=== PATIENT | female | born 1955 | race Caucasian/White ===

== ENCOUNTER 2019-02-06 08:22 | Day surgery (SDC) | payer MEDICARE, BC, OTHER ==
[~2019-02-06] VITALS: Ht 162.6 cm; Wt 101.2 kg
[~2019-02-06 08:22] MED LIST: BRIM2OPD OU; LIDOCAINE 2% INJ 100 MG/5 ML SDV (FOR ANES.) As Ordered ONE; LISI10TA4 PO; MULTCAP PO; NS 1,000 ML IV ONE; OMEP40CA2 PO; PROPOFOL 200 MG/20 ML VIAL As Ordered ONE; TRAV04OPD OU
--- NOTE | 2019-02-06 10:02 | ROOR ---
Patient Name: Catrina Hammonds Procedure Date: 02/06/2019 9:46 AM Date of : 1955 Age: 64 Room: [facility] Gender: Female Note Status: Finalized Procedure: Upper GI endoscopy Indications: Heartburn, Suspected esophageal reflux Providers: Jae Dickens Jr, MD Referring MD: BI MOORE NP Requesting Provider: Medicines: Propofol per Anesthesia Complications: No immediate complications. Procedure: Pre-Anesthesia Assessment: - Prior to the procedure, a History and Physical was performed, and patient medications and allergies were reviewed. The patient is competent. The risks and benefits of the procedure and the sedation options and risks were discussed with the patient. All questions were answered and informed consent was obtained. Patient identification and proposed procedure were verified by the physician and the nurse in the pre-procedure area and in the procedure room. Mental Status Examination: alert and oriented. Airway Examination: normal oropharyngeal airway and neck mobility. Respiratory Examination: clear to auscultation. CV Examination: normal. ASA Grade Assessment: II - A patient with mild systemic disease. After reviewing the risks and benefits, the patient was deemed in satisfactory condition to undergo the procedure. The anesthesia plan was to use moderate sedation / analgesia (conscious sedation). Immediately prior to administration of medications, the patient was re-assessed for adequacy to receive sedatives. The heart rate, respiratory rate, oxygen saturations, blood pressure, adequacy of pulmonary ventilation, and response to care were monitored throughout the procedure. The physical status of the patient was re-assessed after the procedure. The Endoscope was introduced through the mouth, and advanced to the second part of duodenum. The upper GI endoscopy was accomplished without difficulty. The patient tolerated the procedure well. Findings: The upper third of the esophagus, middle third of the esophagus and lower third of the esophagus were normal. The gastroesophageal junction, cardia, gastric fundus, gastric body, gastric antrum, prepyloric region of the stomach and pylorus were normal. Biopsies were taken with a cold forceps for histology. The duodenal bulb and second portion of the duodenum were normal. Patchy moderate inflammation characterized by congestion (edema), erythema, friability and granularity was found in the first portion of the duodenum. Impression: - Normal upper third of esophagus, middle third of esophagus and lower third of esophagus. - Normal gastroesophageal junction, cardia, gastric fundus, gastric body, antrum, prepyloric region of the stomach and pylorus. Biopsied. - Normal duodenal bulb and second portion of the duodenum. - Duodenitis. Recommendation: - Discharge patient to home (ambulatory). - Return to my office as previously scheduled. Jae Dickens MD Jae Dickens Jr, MD 02/06/2019 10:01:56 AM Electronically signed by Jae Dickens Jr, MD Number of Addenda: 0 Note Initiated On: 02/06/2019 9:46 AM Estimated Blood Loss: Estimated blood loss: none.
[2019-02-06] MEDS ORDERED: PROPOFOL 200 MG/20 ML VIAL As Ordered ONE (10:16)
--- NOTE | 2019-02-06 10:23 | ROOR ---
Patient Name: Catrina Hammonds Procedure Date: 02/06/2019 9:47 AM Date of : 1955 Age: 64 Room: [facility] Gender: Female Note Status: Finalized Procedure: Colonoscopy Indications: Screening in patient at increased risk: Family history of 1st-degree relative with colorectal cancer Providers: Jae Dickens Jr, MD Referring MD: BI MOORE NP Requesting Provider: Medicines: Propofol per Anesthesia Complications: No immediate complications. Procedure: Pre-Anesthesia Assessment: - Prior to the procedure, a History and Physical was performed, and patient medications and allergies were reviewed. The patient is competent. The risks and benefits of the procedure and the sedation options and risks were discussed with the patient. All questions were answered and informed consent was obtained. Patient identification and proposed procedure were verified by the physician and the nurse in the pre-procedure area and in the procedure room. Mental Status Examination: alert and oriented. Airway Examination: normal oropharyngeal airway and neck mobility. Respiratory Examination: clear to auscultation. CV Examination: normal. ASA Grade Assessment: II - A patient with mild systemic disease. After reviewing the risks and benefits, the patient was deemed in satisfactory condition to undergo the procedure. The anesthesia plan was to use moderate sedation / analgesia (conscious sedation). Immediately prior to administration of medications, the patient was re-assessed for adequacy to receive sedatives. The heart rate, respiratory rate, oxygen saturations, blood pressure, adequacy of pulmonary ventilation, and response to care were monitored throughout the procedure. The physical status of the patient was re-assessed after the procedure. The Colonoscope was introduced through the anus and advanced to the cecum, identified by appendiceal orifice and ileocecal valve. The colonoscopy was performed without difficulty. The patient tolerated the procedure well. The quality of the bowel preparation was adequate. Findings: The rectum, recto-sigmoid colon, descending colon, transverse colon, ascending colon, cecum, appendiceal orifice and ileocecal valve appeared normal. Multiple small and large-mouthed diverticula were found in the sigmoid colon. Impression: - The rectum, recto-sigmoid colon, descending colon, transverse colon, ascending colon, cecum, appendiceal orifice and ileocecal valve are normal. - Diverticulosis in the sigmoid colon. - No specimens collected. Recommendation: - Discharge patient to home (ambulatory). - Repeat colonoscopy in 5 years for screening purposes. Jae Dickens MD Jae Dickens Jr, MD 02/06/2019 10:23:29 AM Electronically signed by Jae Dickens Jr, MD Number of Addenda: 0 Note Initiated On: 02/06/2019 9:47 AM Estimated Blood Loss: Estimated blood loss: none.
[2019-02-06 10:50] VITALS: BP 139/72
== END 2019-02-06 10:57 | disposition home or self-care (01) ==
LOC: M OPP 08:22
PROVIDERS: ATTEND Surgery
DX: K57.30 Diverticulosis of large intestine without perforation or abscess without bleeding (principal); K29.80 Duodenitis without bleeding; R12 Heartburn; Z12.11 Encounter for screening for malignant neoplasm of colon; Z80.0 Family history of malignant neoplasm of digestive organs
CPT/HCPCS: 43239; 88305; G0105

== ENCOUNTER → 2021-01-26 | Outpatient (CLI) | payer MEDICARE, BC ==
[~2021-01-26] MED LIST changes: -LIDOCAINE 2% INJ 100 MG/5 ML SDV (FOR ANES.) As Ordered ONE; +LISI10TA22 PO; -LISI10TA4 PO; -NS 1,000 ML IV ONE; -OMEP40CA2 PO; +OMEP40CA97 PO; -PROPOFOL 200 MG/20 ML VIAL As Ordered ONE
--- NOTE | 2021-01-26 12:43 | REPMRS ---
Patient History The patient states she had a clinical breast exam in December 2020. Family history of colorectal cancer at age 45 in brother, prostate cancer at age 60 in father. Took hormonal contraceptives for 6 months. Tomosynthesis is performed. Volpara breast density is b. [facility] lifetime risk of breast cancer 6.0%. Digital Woman Screen Mammo: January 26, 2021 - Exam #: [id number] Bilateral CC and MLO view(s) were taken. Technologist: Heather Wayne, Technologist Prior study comparison: June 25, 2017, bilateral digital mammo screening bilat, performed at [facility]. June 29, 2016, bilateral digital mammo screening bilat, performed at [facility]. May 07, 2015, bilateral digital mammo screening bilat, performed at [facility]. March 15, 2012, bilateral bilat screen digital mammo, performed at [facility] ([facility]). February 09, 2011, bilateral screening mammogram, performed at [facility] ([facility]). FINDINGS: The breast tissue is heterogeneously dense. This may lower the sensitivity of mammography. There has been no change in the appearance of the mammogram from the prior studies. There is a moderate amount of residual fibroglandular tissue which is fairly symmetric. There is no interval development of dominant mass, areas of architectural distortion, or clustered microcalcification typical of malignancy. Assessment: BI-RADS/ACR category 1 mammogram. Negative Mammogram. Recommendation Routine screening mammogram in 1 year (for women over age 40). This mammogram was interpreted with the aid of an FDA-approved computer-aided dectection system. Electronically Signed By: Duong Hollingsworth MD 01/26/21 [id number]
== END ==
LOC: M WHC 10:43
PROVIDERS: ATTEND Nurse Practitioner Women's Health
DX: Z12.31 Encounter for screening mammogram for malignant neoplasm of breast (principal)

== ENCOUNTER → 2021-05-16 | Outpatient (CLI) | payer MEDICARE, BC, OTHER ==
[~2021-05-16] MED LIST changes: +GASTROGRAFIN SOLUTION 30ML (Q9963) As Ordered ONE; +ISOVUE-370 76% 100ML VIAL As Ordered ONE; +OMEP40CA4 PO; -OMEP40CA97 PO
--- NOTE | 2021-05-17 08:25 | REP ---
INDICATION: LOWER ABD PAIN, CHANGE IN BOWEL HABIT COMPARISON: None TECHNIQUE: Axial noncontrast images from the lung bases to the pubic symphysis with coronal and sagittal reformations. This CT examination was performed using the following dose reduction techniques: Automated exposure control, adjustment of mA and/or kv according to the patient's size, and use of iterative reconstruction technique. FINDINGS: Lung bases are clear with minimal chronic changes at the right middle lobe and lingula. Visualized heart and pericardium normal. Liver, spleen, atrophic pancreas, bilateral adrenal glands and kidneys are normal. Cholelithiasis noted without acute cholecystitis. The enteric system is unremarkable and without obstruction or acute inflammatory process. Normal terminal ileum and appendix identified in the right lower quadrant. Sigmoid diverticulosis without acute diverticulitis. Pelvis demonstrates normal collapsed bladder and prior hysterectomy. No ascites. No free air. No adenopathy. No focal inflammatory stranding. Abdominal aorta without aneurysm. Musculoskeletal structures are intact and without acute osseous abnormality. IMPRESSION: No acute abdominopelvic pathology appreciated. Cholelithiasis. Sigmoid diverticulosis. <Electronically signed by Joshua Galan > 05/17/21 [id number]
== END ==
LOC: M RAD 14:51
PROVIDERS: ATTEND Registered Nurse
DX: R10.30 Lower abdominal pain, unspecified (principal); R19.4 Change in bowel habit; K57.30 Diverticulosis of large intestine without perforation or abscess without bleeding
CPT/HCPCS: 74176; Q9963; Q9967

== ENCOUNTER → 2021-08-01 | Outpatient (CLI) | payer MEDICARE, BC, OTHER ==
[~2021-08-01] MED LIST changes: -GASTROGRAFIN SOLUTION 30ML (Q9963) As Ordered ONE; -ISOVUE-370 76% 100ML VIAL As Ordered ONE
== END ==
LOC: M WUC 09:33
PROVIDERS: ATTEND Physician Assistant Medical
DX: M25.561 Pain in right knee (principal)

== ENCOUNTER 2022-05-25 16:38 | Observation (INO) | payer MEDICARE, BC, OTHER ==
[~2022-05-25] VITALS: Ht 162.6 cm; Wt 100.6 kg
[2022-05-25] MEDS ORDERED: diphenhydrAMINE 50MG/ML VIAL (J1200) IV ONE (17:10)
[2022-05-25] MEDS ORDERED: FAMOTIDINE 20MG/2ML VIAL IVP ONE (17:10)
[2022-05-25] MEDS ORDERED: dexameTHASONE 20MG/5ML VIAL (J1100 PER 1MG) IV ONE (17:10)
[2022-05-25] MEDS ORDERED: SERT50TA29 PO (21:50)
[2022-05-25] MEDS ORDERED: TIZA2CAP PO (21:50)
[2022-05-25] MEDS ORDERED: VITMTA PO (21:50)
[2022-05-25] MEDS ORDERED: ATOR40TA75 PO (21:50)
[2022-05-25] MEDS ORDERED: METF-838 PO (21:50)
[2022-05-25] MEDS ORDERED: FAMO40TA3 PO (21:50)
[2022-05-25] MEDS ORDERED: EPIP0.3I2 IM (21:50)
[2022-05-25 21:59] LABS: BASO % 0.1 % (0.0-1.0); EOS # 0.1 10^3/uL (0.0-0.5); EOS % 0.7 % (0.0-3.0); HEMATOCRIT 33.5 % (36.0-47.0); HEMOGLOBIN 10.6 g/dl (12.0-15.5); LYMPH # 0.7 10^3/uL (1.5-5.0); LYMPH % 7.3 % (24.0-44.0); MEAN CORPUSCULAR HEMOGLOBIN 28.9 pg (27.0-33.0); MEAN CORPUSCULAR HGB CONC 31.6 g/dl (32.0-36.5); MEAN CORPUSCULAR VOLUME 91.3 fl (80.0-96.0); MONO # 0.1 10^3/uL (0.0-0.8); MONO % 1.2 % (2.0-8.0); NEUTROPHILS # 8.5 10^3/uL (1.5-8.5); NEUTROPHILS % 90.4 % (36.0-66.0); PLATELET COUNT, AUTOMATED 241 10^3/uL (150-450); RED BLOOD COUNT 3.67 10^6/uL (4.00-5.40); WHITE BLOOD COUNT 9.4 10^3/uL (4.0-10.0)
[2022-05-25] MEDS ORDERED: HOME MED LIST COMPLETE! XX SCH (22:00)
[2022-05-25 22:29] LABS: RSV AMPLIFICATION NEGATIVE (NEGATIVE)
[2022-05-25 22:30] LABS: ALBUMIN 3.4 GM/DL (3.2-5.2); ALT/SGPT 23 U/L (12-78); BILIRUBIN,DIRECT < 0.1 MG/DL (0.0-0.2); BILIRUBIN,TOTAL 0.2 MG/DL (0.2-1.0); BLOOD UREA NITROGEN 22 MG/DL (7-18); CARBON DIOXIDE LEVEL 28 MEQ/L (21-32); CHLORIDE LEVEL 108 MEQ/L (98-107); CREATININE FOR GFR 0.82 MG/DL (0.55-1.30); GLOMERULAR FILTRATION RATE > 60.0 (>45); GLUCOSE, FASTING 158 MG/DL (70-100); POTASSIUM SERUM 4.4 MEQ/L (3.5-5.1); SODIUM LEVEL 142 MEQ/L (136-145)
[2022-05-26] MEDS ORDERED: diphenhydrAMINE 50MG/ML VIAL (J1200) IV PRN (01:40)
[2022-05-26] MEDS ORDERED: ACETAMINOPHEN TAB 650MG DOSE (2X325MG) PO PRN (01:40)
[2022-05-26] MEDS ORDERED: MOM 30ML SUSPENSION UDC PO PRN (01:40)
[2022-05-26] MEDS ORDERED: MAALOX 30 ML SUSP *UDC PO PRN (01:40)
[2022-05-26] MEDS ORDERED: hydrALAZINE 20MG/ML 1ML VIAL (J0360 PER 20MG) IV STA (03:50)
[2022-05-26 04:00] VITALS: BP 125/59
[2022-05-26] MEDS ORDERED: GLUCOSE 4GM CHEW TABLET PO PRN (04:00)
[2022-05-26] MEDS ORDERED: hydrALAZINE 20MG/ML 1ML VIAL (J0360 PER 20MG) IV ONE (04:00)
[2022-05-26] MEDS ORDERED: DEXTROSE 50% 50 ML SYRINGE IV PRN (04:00)
[2022-05-26] MEDS ORDERED: EPINEPHrine INJ 1 MG/ML 1ML AMP IM PRN (04:00)
[2022-05-26] MEDS ORDERED: methylPREDNISolone 40MG 1ML VIAL IV SCH (04:00)
[2022-05-26] MEDS ORDERED: GLUCAGON INJ 1MG VIAL SC PRN (04:00)
[2022-05-26] MEDS ORDERED: NS 1,000 ML IV SCH (04:05)
[2022-05-26] MEDS ORDERED: INSULIN LISPRO (NovoLOG) PER UNIT SC SCH ×2 (07:30→21:00)
[2022-05-26 08:12] LABS: BLOOD UREA NITROGEN 23 MG/DL (7-18); CALCIUM LEVEL 8.9 MG/DL (8.8-10.2); CARBON DIOXIDE LEVEL 26 MEQ/L (21-32); CHLORIDE LEVEL 108 MEQ/L (98-107); CREATININE FOR GFR 0.67 MG/DL (0.55-1.30); GLOMERULAR FILTRATION RATE > 60.0 (>45); GLUCOSE, FASTING 137 MG/DL (70-100); POTASSIUM SERUM 4.1 MEQ/L (3.5-5.1); SODIUM LEVEL 140 MEQ/L (136-145)
[2022-05-26] MEDS ORDERED: FAMOTIDINE 20MG/2ML VIAL IVP SCH (09:00)
[2022-05-26] MEDS ORDERED: BRIMONIDINE 0.15% OPHTH SOLN 5 ML OU SCH (09:00)
[2022-05-26] MEDS ORDERED: NORV5TAB PO (10:23)
[2022-05-26 13:32] VITALS: BP 148/72
[2022-05-26] MEDS ORDERED: FLUBLOK(EGG FREE)(QUAD)INFLUENZA VACC 0.5ML SYRINGE 18YRS & OLDER IM.IMMUN ONE (14:00)
[2022-05-26] MEDS ORDERED: ATORVASTATIN 20 MG TAB PO SCH (21:00)
[2022-05-26] MEDS ORDERED: LATANOPROST 0.005% OPHTH SOLN 2.5 ML OU SCH (21:00)
[2022-05-26] MEDS ORDERED: SERTRALINE HCL 50 MG TAB PO SCH (21:00)
== END 2022-05-26 13:37 | disposition home or self-care (01) ==
LOC: M ED 16:38 → M ED INP 16:39
PROVIDERS: ADMIT Internal Medicine; ATTEND Internal Medicine
DX: T78.3XXA Angioneurotic edema, initial encounter (principal); R06.89 Other abnormalities of breathing; R22.0 Localized swelling, mass and lump, head; R49.8 Other voice and resonance disorders; I10 Essential (primary) hypertension; E11.9 Type 2 diabetes mellitus without complications; K21.9 Gastro-esophageal reflux disease without esophagitis; J30.2 Other seasonal allergic rhinitis; F32.A Depression, unspecified; Z86.73 Personal history of transient ischemic attack (TIA), and cerebral infarction without residual deficits; Z79.899 Other long term (current) drug therapy; Z79.84 Long term (current) use of oral hypoglycemic drugs; Z91.018 Allergy to other foods
CPT/HCPCS: 36415; 71045; 80048; 80076; 85025; 87631; 90682; 93005; 93041; 94760; 96361; 96374; 96375; 96376; 99285; G0378; J1100; J1200; J2920

== ENCOUNTER 2024-03-23 14:12 | Observation (INO) | payer MEDICARE, BC ==
[~2024-03-23] VITALS: Ht 162.6 cm; Wt 97.7 kg
[~2024-03-23 14:12] MED LIST changes: +ATOR40TA75 PO; +EPIP0.3I2 IM; +FAMO40TA3 PO; +METF-838 PO; +NORV5TAB PO; +SERT50TA29 PO; +TIZA2CAP PO; +VITMTA PO
[2024-03-23] MEDS ORDERED: ISOVUE-370 76% 100ML VIAL As Ordered ONE (15:25)
[2024-03-23 15:57] LABS: BASO % 0.3 % (0.0-1.0); EOS # 0.1 10^3/uL (0.0-0.5); EOS % 1.4 % (0.0-3.0); HEMATOCRIT 36.4 % (36.0-47.0); HEMOGLOBIN 11.5 g/dl (12.0-15.5); LYMPH # 1.3 10^3/uL (1.5-5.0); LYMPH % 14.7 % (24.0-44.0); MEAN CORPUSCULAR HEMOGLOBIN 27.2 pg (27.0-33.0); MEAN CORPUSCULAR HGB CONC 31.6 g/dl (32.0-36.5); MEAN CORPUSCULAR VOLUME 86.1 fl (80.0-96.0); MONO # 0.6 10^3/uL (0.0-0.8); MONO % 6.1 % (2.0-8.0); NEUTROPHILS # 6.9 10^3/uL (1.5-8.5); NEUTROPHILS % 77.1 % (36.0-66.0); PLATELET COUNT, AUTOMATED 264 10^3/uL (150-450); RED BLOOD COUNT 4.23 10^6/uL (4.00-5.40)
[2024-03-23 16:11] LABS: INR 0.97; PARTIAL THROMBOPLASTIN TIME 24.5 SECONDS (24.8-34.2); PROTHROMBIN TIME 12.6 SECONDS (12.5-14.5)
[2024-03-23 16:32] LABS: CPK CREATINE PHOSPHOKINASE 61 U/L (34-145)
[2024-03-23 16:33] LABS: ALBUMIN 3.5 G/DL (3.2-5.2); ALKALINE PHOSPHATASE 163 U/L (46-116); ALT/SGPT 21 U/L (7.0-40); AST/SGOT 15 U/L (<34); BILIRUBIN,DIRECT < 0.1 MG/DL (<0.4); BILIRUBIN,TOTAL 0.3 MG/DL (0.3-1.2); BLOOD UREA NITROGEN 22 MG/DL (9-23); CALCIUM LEVEL 8.5 MG/DL (8.3-10.6); CARBON DIOXIDE LEVEL 28 MMOL/L (20-31); CHLORIDE LEVEL 108 MMOL/L (98-107); CK-MB VALUE MASS < 1.0 NG/ML (<3.6); CREATININE FOR GFR 0.81 MG/DL (0.55-1.30); GLOMERULAR FILTRATION RATE > 60.0 (>39); GLUCOSE, FASTING 135 MG/DL (74-106); MAGNESIUM LEVEL 1.9 MG/DL (1.8-2.4); MB/CK RELATIVE INDEX 1.63 (< OR =4); PHOSPHORUS LEVEL 2.8 MG/DL (2.4-5.1); SODIUM LEVEL 140 MMOL/L (136-145)
[2024-03-23 16:34] LABS: FREE T4 0.95 NG/DL (0.89-1.76)
[2024-03-23 16:35] LABS: THYROID STIMULATING HORMONE 2.894 uIU/ML (0.55-4.78)
[2024-03-23 17:48] LABS: CK-MB VALUE MASS < 1.0 NG/ML (<3.6)
[2024-03-23 17:49] LABS: CPK CREATINE PHOSPHOKINASE 68 U/L (34-145); MB/CK RELATIVE INDEX 1.47 (< OR =4)
[2024-03-23] MEDS ORDERED: ACETAMINOPHEN TAB 650MG DOSE (2X325MG) PO PRN (18:30)
[2024-03-23 18:54] LABS: CHOLESTEROL LEVEL 151 MG/DL (<200); CHOLESTEROL RISK RATIO 3.25 (<5); HDL CHOLESTEROL 46.4 MG/DL (>40); LDL CHOLESTEROL 79.2 MG/DL (<100); NON-HDL-C 104.6 MG/DL; TRIGLYCERIDES LEVEL 127 MG/DL (<150)
[2024-03-23] MEDS ORDERED: GLUCAGON INJ 1MG VIAL SC PRN (18:55)
[2024-03-23] MEDS ORDERED: GLUCOSE 4 GM CHEW PO PRN (18:55)
[2024-03-23] MEDS ORDERED: DEXTROSE 50% 50ML SYRINGE IV PRN (18:55)
[2024-03-23 19:02] LABS: HEMOGLOBIN A1c 6.4 % (4.0-6.0)
[2024-03-23] MEDS ORDERED: AMLO1TAB25 PO (19:51)
[2024-03-23] MEDS ORDERED: HYDR-3363 PO (19:51)
[2024-03-23] MEDS ORDERED: MULTTAB61 PO (19:51)
[2024-03-23] MEDS ORDERED: HOME MED LIST COMPLETE! XX SCH (19:55)
[2024-03-23] MEDS: LORazepam 2 MG/ML 1ML VIAL IV ONE (20:05)
[2024-03-23] MEDS ORDERED: FAMOTIDINE 20 MG TAB PO PRN (20:30)
[2024-03-23 21:16] VITALS: BP 163/70
[2024-03-23] MEDS: OMEPRAZOLE 20MG CAP PO SCH (21:16)
[2024-03-23] MEDS: ASPIRIN 81MG ENTERIC TABLET PO SCH (21:16)
[2024-03-23] MEDS: **hydrALAZINE** 10 MG TAB PO ONE (21:16)
[2024-03-23] MEDS: SERTRALINE HCL 50 MG TAB PO SCH (21:16)
[2024-03-23] MEDS: ATORVASTATIN 20 MG TAB PO SCH (21:17)
[2024-03-23 23:25] LABS: INR 1.02; PROTHROMBIN TIME 13.1 SECONDS (12.5-14.5)
[2024-03-24 06:39] LABS: HEMATOCRIT 35.8 % (36.0-47.0); HEMOGLOBIN 11.1 g/dl (12.0-15.5); MEAN CORPUSCULAR HEMOGLOBIN 26.9 pg (27.0-33.0); MEAN CORPUSCULAR VOLUME 86.9 fl (80.0-96.0); PLATELET COUNT, AUTOMATED 241 10^3/uL (150-450); RED BLOOD COUNT 4.12 10^6/uL (4.00-5.40); WHITE BLOOD COUNT 7.7 10^3/uL (4.0-10.0)
[2024-03-24 07:05] LABS: ALBUMIN 3.3 G/DL (3.2-5.2); ALKALINE PHOSPHATASE 156 U/L (46-116); ALT/SGPT 18 U/L (7.0-40); AST/SGOT 14 U/L (<34); BILIRUBIN,TOTAL 0.3 MG/DL (0.3-1.2); BLOOD UREA NITROGEN 19 MG/DL (9-23); CALCIUM LEVEL 8.9 MG/DL (8.3-10.6); CARBON DIOXIDE LEVEL 28 MMOL/L (20-31); CHLORIDE LEVEL 109 MMOL/L (98-107); CREATININE FOR GFR 0.62 MG/DL (0.55-1.30); GLOMERULAR FILTRATION RATE > 60.0 (>39); GLUCOSE, FASTING 122 MG/DL (74-106); POTASSIUM SERUM 3.9 MMOL/L (3.5-5.1); SODIUM LEVEL 141 MMOL/L (136-145); TOTAL PROTEIN 6.8 G/DL (5.7-8.2)
[2024-03-24] MEDS: INSULIN LISPRO (NovoLOG) PER UNIT SC SCH (08:53)
[2024-03-24] MEDS: ENOXAPARIN 40MG/0.4ML SYRINGE (J1650 PER 10MG) SC SCH (08:54)
[2024-03-24] MEDS ORDERED: BRIMONIDINE 0.15% OPHTH SOLN 5 ML OU SCH (09:00)
[2024-03-24] MEDS ORDERED: ASPI81TAEC PO (11:32)
[2024-03-24] MEDS ORDERED: CHLO125TA PO (11:35)
[2024-03-24 12:00] VITALS: BP 144/66; TEMP 98.3; O2SAT 94
[2024-03-24] MEDS ORDERED: LATANOPROST 0.005% OPHTH SOLN 2.5 ML OU SCH (21:00)
== END 2024-03-24 12:14 | disposition home or self-care (01) ==
LOC: EDBD 14:12 → M ED 14:12 → M ED INP 14:13
PROVIDERS: ADMIT Internal Medicine; ATTEND Internal Medicine
DX: H53.123 Transient visual loss, bilateral (principal); R26.9 Unspecified abnormalities of gait and mobility; Z86.73 Personal history of transient ischemic attack (TIA), and cerebral infarction without residual deficits; I10 Essential (primary) hypertension; E11.9 Type 2 diabetes mellitus without complications; K21.9 Gastro-esophageal reflux disease without esophagitis; E78.5 Hyperlipidemia, unspecified; F41.9 Anxiety disorder, unspecified; F32.A Depression, unspecified; Z88.8 Allergy status to other drugs, medicaments and biological substances; Z79.84 Long term (current) use of oral hypoglycemic drugs; Z79.899 Other long term (current) drug therapy; Z91.010 Allergy to peanuts
CPT/HCPCS: 36415; 70450; 70496; 70498; 70551; 71045; 80047; 80048; 80053; 80061; 80076; 82550; 82553; 83036; 83735; 84100; 84439; 84443; 84484; 85025; 85027; 85610; 85730; 93005; 93041; 93306; 94760; 96372; 96374; 97161; 97530; 99285; G0378; J1650; J1815; J2060; Q9967

== ENCOUNTER → 2024-04-01 | Outpatient (CLI) | payer MEDICARE, BC ==
[~2024-04-01] MED LIST changes: +AMLO1TAB25 PO; +ASPI81TAEC PO; +CHLO125TA PO; +HYDR-3363 PO; +MULTTAB61 PO
== END ==
LOC: M EKG 09:42
PROVIDERS: ATTEND Registered Nurse
DX: R00.2 Palpitations (principal)

== ENCOUNTER 2025-03-31 12:31 | Observation (INO) | payer MEDICARE, BC ==
[~2025-03-31] VITALS: Ht 162.6 cm; Wt 100.6 kg
[2025-03-31 13:26] LABS: BASO # 0.0 10^3/uL (0.0-0.2); BASO % 0.3 % (0.0-1.0); EOS # 0.1 10^3/uL (0.0-0.5); EOS % 0.7 % (0.0-3.0); LYMPH # 1.4 10^3/uL (1.5-5.0); LYMPH % 11.2 % (24.0-44.0); MONO # 0.7 10^3/uL (0.0-0.8); MONO % 5.7 % (2.0-8.0); NEUTROPHILS # 10.0 10^3/uL (1.5-8.5); NEUTROPHILS % 81.8 % (36.0-66.0); PLATELET COUNT, AUTOMATED 314 10^3/uL (150-450)
[2025-03-31] MEDS: MORPHINE 4 MG/ML 1 ML VIAL IV ONE (13:35)
[2025-03-31] MEDS: ONDANSETRON 4MG 2ML VIAL IV ONE (13:35)
[2025-03-31 13:58] LABS: ALT/SGPT 24.0 U/L (7.0-40); AST/SGOT 20.0 U/L (<34)
[2025-03-31] MEDS: NS (Normal Saline) 0.9% 1,000 ML IV ONE (14:27)
[2025-03-31 14:32] LABS: MAGNESIUM LEVEL 1.9 MG/DL (1.8-2.4)
[2025-03-31 16:14] LABS: KETONE, URINE AUTO RFX TRACE mg/dL (NEGATIVE); MUCUS, URINE RFX SMALL (NEGATIVE); NITRITE, URINE AUTO RFX NEGATIVE (NEGATIVE); RBC, URINE AUTO RFX 3 /HPF (0-3); SQUAM EPITHELIAL CELL UR AURFX 1 /HPF (0-6); WBC, URINE AUTO RFX 7 /HPF (0-3)
[2025-03-31 16:15] LABS: LEUKOCYTE ESTERASE UR AUTO RFX 2+ (NEGATIVE)
[2025-03-31] MEDS ORDERED: ALPH0.156 OU (17:54)
[2025-03-31] MEDS ORDERED: KETO5DRO32 OU (17:58)
[2025-03-31] MEDS ORDERED: CIPR0.3S37 OS (17:58)
[2025-03-31] MEDS ORDERED: PREDOPD OD (17:58)
[2025-03-31] MEDS ORDERED: METO50TA7 PO (18:01)
[2025-03-31] MEDS ORDERED: FERR325T19 PO (18:01)
[2025-03-31] MEDS ORDERED: HOME MED LIST COMPLETE! XX SCH (18:05)
[2025-03-31] MEDS ORDERED: DICYCLOMINE 10 MG CAP PO PRN (18:20)
[2025-03-31] MEDS ORDERED: ACETAMINOPHEN 325 MG TAB PO PRN (18:20)
[2025-03-31] MEDS ORDERED: GLUCOSE 4 GM CHEW PO PRN (18:20)
[2025-03-31] MEDS ORDERED: DEXTROSE 50% 50 ML SYRINGE IV PRN (18:20)
[2025-03-31] MEDS ORDERED: GLUCAGON INJ 1 MG VIAL SC PRN (18:20)
[2025-03-31] MEDS ORDERED: ONDANSETRON 4MG 2ML VIAL IV PRN (18:20)
[2025-03-31] MEDS: NS (Normal Saline) 0.9% 1,000 ML IV SCH (19:05)
[2025-03-31] MEDS: OMEPRAZOLE 20MG CAP PO SCH (20:27)
[2025-03-31] MEDS: ATORVASTATIN 20 MG TAB PO SCH (20:27)
[2025-03-31 20:28] VITALS: BP 141/66
[2025-03-31] MEDS: METOPROLOL TART 50 MG TAB PO SCH (20:28)
[2025-03-31] MEDS: amLODIPine 10 MG TAB PO SCH (20:28)
[2025-03-31] MEDS: cefTRIAXone SOD 1 GM in DEXTROSE 5% (D5W) ADV/MINI-BAG 50 ML IV SCH (20:33)
[2025-03-31 21:00] VITALS: BP 134/63; TEMP 99.7; O2SAT 97
[2025-03-31] MEDS: INSULIN LISPRO (NovoLOG) PER UNIT SC SCH (21:00)
[2025-03-31] MEDS: prednisoLONE ACET 1% OPHTH SUSP 5ML OD SCH (21:00)
[2025-03-31] MEDS: BRIMONIDINE 0.15% OPHTH SOLN 5 ML OU SCH (21:00)
[2025-03-31] MEDS: CIPROFLOXACIN 0.3% OPHTH SOLN 2.5 ML OS SCH (21:00)
[2025-03-31] MEDS: KETOROLAC 0.5% OPHTH SOLN OU SCH (21:00)
[2025-03-31] MEDS: LATANOPROST 0.005% OPHTH SOLN 2.5 ML OU SCH (21:00)
[2025-03-31] MEDS: metroNIDAZOLE 500 MG in IV 1 EA IV SCH (22:34)
[2025-04-01 04:00] VITALS: BP 130/62; TEMP 99.8; O2SAT 97
[2025-04-01] MEDS: INSULIN LISPRO (NovoLOG) PER UNIT SC SCH (07:30)
[2025-04-01] MEDS: ASPIRIN 81 MG ENTERIC TABLET PO SCH (08:07)
[2025-04-01] MEDS: FERROUS SULFATE 325 MG TAB PO SCH (08:07)
[2025-04-01] MEDS: ENOXAPARIN 40 MG/0.4 ML SYRINGE (J1650 PER 10MG) SC SCH (08:08)
[2025-04-01 08:20] LABS: BASO # 0.0 10^3/uL (0.0-0.2); BASO % 0.5 % (0.0-1.0); EOS # 0.1 10^3/uL (0.0-0.5); EOS % 2.2 % (0.0-3.0); LYMPH # 1.2 10^3/uL (1.5-5.0); LYMPH % 19.8 % (24.0-44.0); MONO # 0.7 10^3/uL (0.0-0.8); MONO % 10.9 % (2.0-8.0); NEUTROPHILS # 4.2 10^3/uL (1.5-8.5); NEUTROPHILS % 66.4 % (36.0-66.0); PLATELET COUNT, AUTOMATED 218 10^3/uL (150-450)
[2025-04-01 08:46] LABS: ALT/SGPT 22 U/L (7.0-40); AST/SGOT 20 U/L (<34); CALCIUM LEVEL 8.1 MG/DL (8.3-10.6); CARBON DIOXIDE LEVEL 27 MMOL/L (20-31); CHLORIDE LEVEL 110 MMOL/L (98-107); CREATININE FOR GFR 0.71 MG/DL (0.55-1.30); GLOMERULAR FILTRATION RATE > 90.0 (>39); MAGNESIUM LEVEL 1.7 MG/DL (1.8-2.4); POTASSIUM SERUM 4.0 MMOL/L (3.5-5.1); SODIUM LEVEL 145 MMOL/L (136-145)
[2025-04-01] MEDS: MAG SULF 1GM/100ML (MAG RUN) 1 GM in IV 1 EA IV ONE (08:54)
[2025-04-01] MEDS ORDERED: GLUCOSE 4 GM CHEW PO PRN (09:55)
[2025-04-01] MEDS ORDERED: GLUCAGON INJ 1 MG VIAL SC PRN (09:55)
[2025-04-01] MEDS ORDERED: DEXTROSE 50% 50 ML SYRINGE IV PRN (09:55)
[2025-04-01] MEDS ORDERED: CEFD1CAP9 PO (11:02)
[2025-04-01] MEDS ORDERED: METR-265 PO (11:02)
[2025-04-01] MEDS ORDERED: RISATAB3 PO (11:02)
[2025-04-01 12:00] VITALS: BP 112/55; TEMP 97.8; O2SAT 93
== END 2025-04-01 13:08 | disposition home or self-care (01) ==
LOC: M ED 12:31 → M ED INP 12:32 → M MS4PR 20:55
PROVIDERS: ADMIT Internal Medicine; ATTEND Internal Medicine
DX: K57.32 Diverticulitis of large intestine without perforation or abscess without bleeding (principal); R10.30 Lower abdominal pain, unspecified; K59.04 Chronic idiopathic constipation; R82.79 Other abnormal findings on microbiological examination of urine; E11.9 Type 2 diabetes mellitus without complications; I10 Essential (primary) hypertension; K21.9 Gastro-esophageal reflux disease without esophagitis; E78.5 Hyperlipidemia, unspecified; H40.9 Unspecified glaucoma; D50.9 Iron deficiency anemia, unspecified; R19.7 Diarrhea, unspecified; Z86.73 Personal history of transient ischemic attack (TIA), and cerebral infarction without residual deficits; Z90.79 Acquired absence of other genital organ(s); Z98.49 Cataract extraction status, unspecified eye; F10.90 Alcohol use, unspecified, uncomplicated; Z91.018 Allergy to other foods; Z88.8 Allergy status to other drugs, medicaments and biological substances; Z79.899 Other long term (current) drug therapy; Z79.82 Long term (current) use of aspirin
CPT/HCPCS: 36415; 74176; 80047; 80053; 80076; 81001; 83605; 83690; 83735; 84145; 85025; 87086; 87507; 93005; 96372; 96374; 96375; 96376; 99285; G0378; J0696; J1650; J1836; J2405; J3475